=== PATIENT | female | born 1990 | race Caucasian/White ===

== ENCOUNTER 2020-10-26 11:50 | Emergency (ER) | payer MEDICAID ==
[~2020-10-26] VITALS: Ht 172.7 cm; Wt 133.4 kg
[2020-10-26 11:59] VITALS: BP 136/63
--- NOTE | 2020-10-26 12:59 | NUR ---
PT CURRENTLY IN REHAB, SHE DID SOME CUTTING THIS WEEKEND, COPING MECHANISM TO HER FOREARMS, DENIES SUICIDE, WAS SENT HERE BY REHAB STAFF. SHE REPORTS A SUICIDE ATTEMPT ON OCTOBER 05, ON THE COAST, BY "CUTTING HER WRIST AND WAS WALKING IN TRAFFIC." SHE STATES SHE WAS ON DRUGS AT THE TIME AND NOW NO LONGER HAS SUICIDAL THOUGHTS OR WISHES TO BE . PT IS DIRECTLY VISIBLE FROM NURSES STATION.
== END 2020-10-26 13:29 | disposition home or self-care (01) ==
LOC: ER 11:51
DX: F32.9 Major depressive disorder, single episode, unspecified (principal); F15.90 Other stimulant use, unspecified, uncomplicated; Z91.5 Personal history of self-harm
CPT/HCPCS: 99281; 99283